=== PATIENT | female | born 1940 | race Caucasian/White ===

== ENCOUNTER 2018-12-04 19:49 | Inpatient (IN) | payer MEDICARE, OTHER ==
[~2018-12-04] VITALS: Ht 162.6 cm; Wt 84.4 kg
[2018-12-04] MEDS ORDERED: MORPHINE SULFATE 4 MG/ML CPJ (NOT FOR IM USE) IV STA (20:05)
[2018-12-04] MEDS ORDERED: SODIUM CHLORIDE 0.9% 1000ML BAG (SEPSIS BOLUS) IV ONE (20:15)
[2018-12-04 20:30] LABS: BASOPHILS % 0.4 % (0.0-2.0); EOSINOPHILS % 0.3 % (0.0-5.0); HEMATOCRIT. 44.1 % (36.0-48.0); HEMOGLOBIN. 14.8 g/dL (12.0-16.0); LYMPHOCYTES % 12.3 % (20.0-50.0); MEAN CORPUSCULAR HEMOGLOBIN 29.5 pg (28.0-32.0); MEAN PLATELET VOLUME 9.2 fl (7.4-10.4); PLATELET 305 x1000/uL (130-400); RED BLOOD CELL COUNT 5.01 mill/uL (4.2-5.4); RED CELL DISTRIBUTION WIDTH 13.9 % (11.6-14.6)
[2018-12-04 20:32] LABS: CHLORIDE 105 mEq/L (98-107); INR 1.1; PROTHROMBIN TIME 11.5 sec (9.1-11.1)
[2018-12-04 20:42] LABS: CREATINE KINASE 434 IU/L (26-192)
[2018-12-04] MEDS ORDERED: FENTANYL CITRATE/PF 50MCG/ML 2ML VIAL IV ONE (21:00)
[2018-12-04] MEDS ORDERED: HALOPERIDOL LACTATE 5MG/ML VIAL IM ONE (21:00)
[2018-12-04 22:49] LABS: CLARITY URINE CLOUDY (CLEAR); COLOR URINE YELLOW (YELLOW); KETONES URINE TRACE (NEGATIVE); LEUKOCYTE ESTERASE URINE 3+ (NEGATIVE); NITRITE URINE POSITIVE (NEGATIVE); OCCULT BLOOD URINE 1+ (NEGATIVE); PROTEIN URINE NEGATIVE (NEGATIVE); SPECIFIC GRAVITY URINE 1.016 (1.005-1.030); UROBILINOGEN URINE 0.2 E.U./dL (0.2-1.0)
[2018-12-04] MEDS ORDERED: PIPERACILLIN/TAZ 3.375G PREMIX 50 ML IV ONE (23:15)
[2018-12-04] MEDS ORDERED: VANCOMYCIN 1 G PREMIX 200 ML IV ONE (23:15)
[2018-12-05] MEDS ORDERED: ENOXAPARIN 40MG/0.4ML SYR SUBCUT SCH
[2018-12-05] MEDS ORDERED: CLONIDINE 0.1MG TABLET PO PRN
[2018-12-05] MEDS ORDERED: MAGNESIUM/ALUMINUM HYDROXIDE/SIMETHICONE 30ML UDC PO PRN
[2018-12-05] MEDS ORDERED: ACETAMINOPHEN 325MG TABLET PO PRN
[2018-12-05] MEDS ORDERED: IPRATROPIUM/ALBUTEROL 0.5-3(2.5)MG/3ML NEB INH PRN
[2018-12-05] MEDS ORDERED: GUAIFENESIN 200MG/10ML SUGAR FREE UDC PO PRN
[2018-12-05] MEDS ORDERED: ONDANSETRON HCL 4MG/2ML INJ IV PRN
[2018-12-05] MEDS ORDERED: NA PHOS,M-B/NA PHOS,DI-BA ENEMA 118ML PR PRN
[2018-12-05] MEDS ORDERED: DOCUSATE SODIUM 100MG CAPSULE PO PRN
[2018-12-05] MEDS: LORAZEPAM 2MG/ML CPJ IV PRN ×3 (00:18→21:24)
[2018-12-05] MEDS: DIPHENHYDRAMINE 50MG/ML VIAL IV PRN (00:19)
[2018-12-05 00:54] LABS: CHLORIDE 110 mEq/L (98-107)
[2018-12-05] MEDS: HYDROCODONE/ACETAMINOPHEN 5/325MG TABLET PO PRN (03:59)
[2018-12-05 06:55] LABS: BASOPHILS % 0.7 % (0.0-2.0); EOSINOPHILS % 0.9 % (0.0-5.0); HEMATOCRIT. 41.4 % (36.0-48.0); HEMOGLOBIN. 13.7 g/dL (12.0-16.0); LYMPHOCYTES % 10.1 % (20.0-50.0); MEAN CORPUSCULAR HEMOGLOBIN 29.1 pg (28.0-32.0); MEAN CORPUSCULAR VOLUME 88.3 fL (81.0-99.0); MEAN PLATELET VOLUME 9.1 fl (7.4-10.4); MONOCYTES % 7.7 % (2.0-8.0); NEUTROPHILS % 80.6 % (40.0-76.0); PLATELET 247 x1000/uL (130-400); RED BLOOD CELL COUNT 4.69 mill/uL (4.2-5.4); RED CELL DISTRIBUTION WIDTH 13.7 % (11.6-14.6)
[2018-12-05 06:56] LABS: CHLORIDE 111 mEq/L (98-107)
[2018-12-05 07:05] LABS: T4 FREE 1.49 ng/dL (0.76-1.46)
[2018-12-05] MEDS ORDERED: ASPIRIN 81MG EC TABLET PO SCH (09:00)
[2018-12-05] MEDS: HYDROMORPHONE HCL/PF 2MG/ML CPJ IV PRN ×3 (09:53→21:24)
[2018-12-05] MEDS: SODIUM CHLORIDE 0.45% 1,000 ML IV SCH (09:54)
[2018-12-05] MEDS: ENOXAPARIN 30MG/0.3ML SYR SUBCUT SCH ×2 (09:54→20:32)
[2018-12-05 11:00] VITALS: BP 138/70
[2018-12-05 12:00] VITALS: BP 106/55
[2018-12-05 16:00] VITALS: BP 121/60
[2018-12-05] MEDS: LEVOFLOXACIN 500MG PREMIX 100 ML IV SCH (16:54)
[2018-12-05] MEDS ORDERED: POTASSIUM CHLORIDE 20MEQ TABLET SR PO ONE (19:15)
[2018-12-05] MEDS ORDERED: POTASSIUM CHLORIDE 20MEQ TABLET SR PO SCH (19:15)
[2018-12-05] MEDS ORDERED: POTASSIUM CHLORIDE 20MEQ TABLET SR PO NR (19:58)
[2018-12-05 20:00] VITALS: BP 153/72
[2018-12-06 00:04] VITALS: BP 113/65
[2018-12-06] MEDS: HYDROMORPHONE HCL/PF 2MG/ML CPJ IV PRN ×6 (01:08→21:28)
[2018-12-06 04:00] VITALS: BP 137/78
[2018-12-06 06:16] LABS: BASOPHILS % 0.5 % (0.0-2.0); EOSINOPHILS % 3.6 % (0.0-5.0); HEMOGLOBIN. 13.6 g/dL (12.0-16.0); LYMPHOCYTES % 15.1 % (20.0-50.0); MEAN CORPUSCULAR HEMOGLOBIN 29.4 pg (28.0-32.0); MEAN CORPUSCULAR VOLUME 88.7 fL (81.0-99.0); MEAN PLATELET VOLUME 9.3 fl (7.4-10.4); MONOCYTES % 8.2 % (2.0-8.0); NEUTROPHILS % 72.6 % (40.0-76.0); PLATELET 275 x1000/uL (130-400); RED BLOOD CELL COUNT 4.63 mill/uL (4.2-5.4); RED CELL DISTRIBUTION WIDTH 13.7 % (11.6-14.6)
[2018-12-06 06:49] LABS: CHLORIDE 107 mEq/L (98-107)
[2018-12-06] MEDS: SODIUM CHLORIDE 0.45% 1,000 ML IV SCH (07:46)
[2018-12-06] MEDS: ENOXAPARIN 30MG/0.3ML SYR SUBCUT SCH ×2 (07:47→21:29)
[2018-12-06] MEDS: LEVOFLOXACIN 500MG PREMIX 100 ML IV SCH (07:47)
[2018-12-06] MEDS: HYDROCODONE/ACETAMINOPHEN 5/325MG TABLET PO PRN (16:44)
[2018-12-06] MEDS: LORAZEPAM 2MG/ML CPJ IV PRN ×2 (17:45→22:45)
[2018-12-06 20:00] VITALS: BP 132/62
[2018-12-06] MEDS: DIPHENHYDRAMINE 50MG/ML VIAL IV PRN (20:05)
[2018-12-07] VITALS: BP 155/70
[2018-12-07] MEDS: HYDROMORPHONE HCL/PF 2MG/ML CPJ IV PRN ×5 (01:39→21:36)
[2018-12-07] MEDS: LORAZEPAM 2MG/ML CPJ IV PRN ×2 (03:15→18:02)
[2018-12-07 04:00] VITALS: BP 150/83
[2018-12-07 08:00] VITALS: BP 154/72
[2018-12-07] MEDS: ENOXAPARIN 30MG/0.3ML SYR SUBCUT SCH ×2 (10:44→21:28)
[2018-12-07] MEDS: SODIUM CHLORIDE 0.45% 1,000 ML IV SCH (11:07)
[2018-12-07] MEDS ORDERED: LEVOFLOXACIN 500MG PREMIX 100 ML IV SCH (15:00)
[2018-12-07] MEDS: NITROFURANTOIN 100MG M/M CAPSULE PO SCH (18:02)
[2018-12-07 20:00] VITALS: BP 150/72
[2018-12-08] VITALS: BP 141/60
[2018-12-08] MEDS: HYDROMORPHONE HCL/PF 2MG/ML CPJ IV PRN ×3 (00:26→11:51)
[2018-12-08] MEDS: LORAZEPAM 2MG/ML CPJ IV PRN ×3 (00:27→11:50)
[2018-12-08 04:00] VITALS: BP 161/82
[2018-12-08 06:33] LABS: CHLORIDE 105 mEq/L (98-107)
[2018-12-08 06:44] LABS: BASOPHILS % 0.6 % (0.0-2.0); EOSINOPHILS % 4.6 % (0.0-5.0); HEMATOCRIT. 41.6 % (36.0-48.0); LYMPHOCYTES % 12.5 % (20.0-50.0); MEAN CORPUSCULAR HEMOGLOBIN 29.5 pg (28.0-32.0); MEAN CORPUSCULAR VOLUME 87.5 fL (81.0-99.0); MEAN PLATELET VOLUME 9.7 fl (7.4-10.4); MONOCYTES % 9.1 % (2.0-8.0); NEUTROPHILS % 73.2 % (40.0-76.0); PLATELET 270 x1000/uL (130-400); RED BLOOD CELL COUNT 4.76 mill/uL (4.2-5.4); RED CELL DISTRIBUTION WIDTH 13.2 % (11.6-14.6)
[2018-12-08 08:00] VITALS: BP 132/67
[2018-12-08] MEDS: NITROFURANTOIN 100MG M/M CAPSULE PO SCH (09:00)
[2018-12-08] MEDS: ENOXAPARIN 30MG/0.3ML SYR SUBCUT SCH (09:00)
[2018-12-08] MEDS: SODIUM CHLORIDE 0.45% 1,000 ML IV SCH (09:30)
[2018-12-08 12:00] VITALS: BP 119/65
[2018-12-08 16:00] VITALS: BP 129/71
[2018-12-09] MEDS ORDERED: ENOXAPARIN 40MG/0.4ML SYR SUBCUT SCH (09:00)
== END 2018-12-08 19:14 | disposition home health service (06) | DRG 71 ==
LOC: ER 19:49 → 7WST 23:20 → EDBEDREQTM 23:29 → EDBEDREQ 23:29 → EDBEDREQSVC 23:29 → ENRESERV 12-05 08:00
PROVIDERS: ADMIT Internal Medicine; ATTEND Internal Medicine
DX: G93.41 Metabolic encephalopathy (principal); J84.9 Interstitial pulmonary disease, unspecified; M48.54XA Collapsed vertebra, not elsewhere classified, thoracic region, initial encounter for fracture; M48.56XA Collapsed vertebra, not elsewhere classified, lumbar region, initial encounter for fracture; N39.0 Urinary tract infection, site not specified; E46 Unspecified protein-calorie malnutrition; E86.0 Dehydration; I10 Essential (primary) hypertension; R32 Unspecified urinary incontinence; J44.9 Chronic obstructive pulmonary disease, unspecified; F03.90 Unspecified dementia, unspecified severity, without behavioral disturbance, psychotic disturbance, mood disturbance, and anxiety; M47.896 Other spondylosis, lumbar region; M41.9 Scoliosis, unspecified; M48.061 Spinal stenosis, lumbar region without neurogenic claudication; W18.30XA Fall on same level, unspecified, initial encounter; Y93.89 Activity, other specified; Y92.89 Other specified places as the place of occurrence of the external cause; Y99.8 Other external cause status; Z68.31 Body mass index [BMI] 31.0-31.9, adult
CPT/HCPCS: 36415; 71045; 72131; 72146; 72148; 73521; 80048; 82140; 82550; 83605; 84439; 84443; 84484; 87077; 87186; 87804; 93005; 93306; 93970; 96365; 96375; 99291; A6261; C1893; J1170; J1200; J1630; J1650; J1956; J2060; J2270; J2543; J3010; J3370; J7030